=== PATIENT | male | born 1935 | race Caucasian/White ===

== ENCOUNTER 2018-11-28 05:30 | Inpatient (IN) | payer BC ==
[2018-11-28] MEDS ORDERED: FUROSEMIDE 40 MG SOL IV ONE (05:56)
[2018-11-28] MEDS ORDERED: LABETALOL HYDROCHLORIDE 5 MG/ML SOL IV ONE ×2 (05:58→06:26)
[2018-11-28 06:26] LABS: BASOPHILS % (AUTO) 1 % (0-3); EOSINOPHILS % (AUTO) 2 % (0-9); HEMATOCRIT 38 % (39-53); HEMOGLOBIN 12.7 gm/dl (13.5-17.7); LYMPHOCYTES % (AUTO) 17.7 % (10-50); MEAN CORPUSCULAR HEMOGLOBIN 30.1 pg (27.0-32.0); MEAN CORPUSCULAR HGB CONC 33.4 gm/dl (32.0-36.0); MEAN CORPUSCULAR VOLUME 90 fL (80-100); MONOCYTES % (AUTO) 10.3 % (0-12); NEUTROPHILS % (AUTO) 69.4 % (37-80)
[2018-11-28] MEDS ORDERED: FUROSEMIDE 40 MG SOL ONE (06:26)
[2018-11-28] MEDS: SODIUM CHLORIDE 0.9% FLUSH 10 ML SOL IV PRN ×2 (06:30→06:38)
[2018-11-28 06:37] LABS: INR 0.98 (0.86-1.12)
[2018-11-28] MEDS ORDERED: ALBUTEROL NEB SOL 2.5MG/3ML 1 VIAL SOL NEB ONE (06:38)
[2018-11-28] MEDS ORDERED: ALBUTEROL NEB SOL 2.5MG/3ML 1 VIAL SOL ONE (06:41)
[2018-11-28 06:43] LABS: APPEARANCE,URINE Clear; BILIRUBIN,URINE NEGATIVE (NEGATIVE); COLOR,URINE Yellow; GLUCOSE, URINE (UA) NEGATIVE (NEGATIVE); KETONES,URINE NEGATIVE (NEGATIVE); LEUKOCYTE ESTERASE ,URINE NEGATIVE (NEGATIVE); NITRATE,URINE NEGATIVE (NEGATIVE); OCCULT BLOOD,URINE NEGATIVE (NEG-TRACE); UROBILINOGEN,URINE 0.2 (0.2-1.0 EU)
[2018-11-28 06:48] LABS: ALKALINE PHOSPHATASE 88 IU/L (46-116); ALT 19 IU/L (14-63); AST 17 IU/L (15-37); BILIRUBIN,TOTAL 0.6 mg/dl (0.2-1.0); BLOOD UREA NITROGEN 21 mg/dl (7-18); CALCIUM 8.9 mg/dl (8.5-10.1); CARBON DIOXIDE 23.9 mEq/L (21-32); CHLORIDE 107 mMol/L (98-107); CREATININE 1.38 mg/dl (0.80-1.30); GLUCOSE 138 mg/dl (74-106); POTASSIUM 3.9 mMol/L (3.5-5.1); SODIUM 141 mMol/L (136-145); TOTAL PROTEIN 7.8 gm/dl (6.4-8.2); TROP I < 0.017 ng/ml (0.000-0.056)
[2018-11-28 06:56] LABS: RBC,URINE NEG (0-3AV/HPF)
[2018-11-28 06:57] LABS: BACTERIA NEGATIVE (< 1+); CRYSTALS NEGATIVE (0-3 AVE/HPF); EPITHELIAL CELLS 0-2 (SQUAMOUS); WBC,URINE 0-1 (0-5AV/HPF)
[2018-11-28] MEDS ORDERED: POLYETHYLENE GLYCOL 17 GM/1 TBS PDS PO PRN (07:06)
[2018-11-28] MEDS ORDERED: ALBUTEROL NEB SOL 2.5MG/3ML 1 VIAL SOL NEB PRN (07:07)
[2018-11-28] MEDS ORDERED: PIPERACILLIN/TAZOBACT 3.375 GM PDS IV ONE (08:36)
[2018-11-28] MEDS ORDERED: SODIUM CHLORIDE 0.9% 100 ML 100 ML IV ONE (08:37)
[2018-11-28] MEDS: SOLUMEDROL 125 MG/2 ML 125 MG/2 ML PDS IV SCH ×2 (08:38→14:25)
[2018-11-28] MEDS: PIPERACILLIN/TAZOBACT 3.375 GM 3.375 GM in SODIUM CHLORIDE 0.9% 100 ML 100 ML IV SCH ×2 (08:42→14:26)
[2018-11-28] MEDS: ALBUTEROL/IPRATROPIUM 1 VIAL SOL INH SCH ×2 (08:44→14:25)
[2018-11-28] MEDS ORDERED: FLUTICASONE PROPIONATE SPR NAS SCH (09:00)
[2018-11-28] MEDS ORDERED: ENOXAPARIN 40 MG SOL SC SCH (09:00)
[2018-11-28 09:18] LABS: ABG PH 7.13 (7.35-7.45)
[2018-11-28] MEDS ORDERED: SOLUMEDROL 125 MG/2 ML 125 MG/2 ML PDS IV ONE (09:27)
[2018-11-28] MEDS ORDERED: SODIUM CHLORIDE 0.9% 1000ML 1,000 ML IV ONE (09:38)
[2018-11-28 10:05] LABS: ABG PH 7.23 (7.35-7.45)
[2018-11-28 10:13] LABS: LACTIC ACID < 0.8 mMol/L (0.0-2.0)
[2018-11-28 10:35] LABS: TROP I < 0.017 ng/ml (0.000-0.056)
[2018-11-28] MEDS: TAMSULOSIN HYDROCHLORIDE 0.4 MG CAP PO SCH ×2 (11:02→12:49)
[2018-11-28] MEDS: AMLODIPINE 5 MG TAB PO SCH ×2 (11:03→12:49)
[2018-11-28] MEDS: LOSARTAN POTASSIUM 50 MG TAB PO SCH ×2 (11:03→12:48)
[2018-11-28] MEDS: ASPIRIN 81 MG CHEWABLE CTB PO SCH ×2 (11:03→12:48)
[2018-11-28 12:21] LABS: ABG PH 7.22 (7.35-7.45)
[2018-11-28] MEDS ORDERED: ETOMIDATE 2 MG/ML SOL IV ONE ×4 (12:30→13:34)
[2018-11-28] MEDS ORDERED: ATROPINE 0.1 MG/ML SOL ONE (12:30)
[2018-11-28] MEDS ORDERED: LIDOCAINE HCL 2% (100 MG) CARP ONE (12:31)
[2018-11-28] MEDS ORDERED: ROCURONIUM BROMIDE 10 MG/ML SOL IV ONE ×3 (12:32→13:34)
[2018-11-28] MEDS ORDERED: SUCCINYLCHOLINE CHLORIDE 20 MG/ML SOL IV ONE ×2 (12:32→13:34)
[2018-11-28 12:56] VITALS: TEMP 96.3
[2018-11-28] MEDS ORDERED: MIDAZOLAM 2 MG/2 ML SOL ONE (13:27)
[2018-11-28] MEDS ORDERED: MIDAZOLAM 2 MG/2 ML SOL IV ONE (13:34)
[2018-11-28 13:59] VITALS: BP 134/68; PULSE 72; RESP 18; O2SAT 97
[2018-11-28] MEDS ORDERED: SIMVASTATIN 20 MG TAB PO SCH (21:00)
[2018-11-28] MEDS ORDERED: TRAVOPROST SOL EACHEYE SCH (21:00)
== END 2018-11-28 14:20 | disposition short-term general hospital (02) | DRG 192 ==
LOC: ED 05:30 → ACUTE CARE 07:02 → UNDOADMIN 07:02 → ACUTE CARE 07:50
PROVIDERS: ADMIT Family Medicine; ATTEND Family Medicine
DX: J44.1 Chronic obstructive pulmonary disease with (acute) exacerbation (principal); I25.810 Atherosclerosis of coronary artery bypass graft(s) without angina pectoris; I10 Essential (primary) hypertension; R06.02 Shortness of breath; R42 Dizziness and giddiness; R06.2 Wheezing; R06.00 Dyspnea, unspecified
CPT/HCPCS: 31500; 36415; 36600; 70450; 71045; 71275; 80053; 81001; 82803; 83880; 84484; 85025; 85378; 85610; 87040; 93005; 93012; 94150; 94660; 94664; 96374; 96375; 99223; 99285; J0330; J0461; J1650; J1940; J2001; J2250; J2543; J2930; J7613; Q9967; A9270-GY; J3490